=== PATIENT | female | born 1965 | race Asian ===

== ENCOUNTER 2021-05-28 09:10 | Emergency (ER) | payer OTHER ==
[2021-05-28 09:18] VITALS: BP 180/93
--- NOTE | 2021-05-28 09:32 | ED Physician Documentation ---
PD HPI UPPER EXT INJURY - Stated complaint Stated Complaint: LT ARM PX - Chief complaint Chief Complaint: Ext Problem - History obtained from History obtained from: Patient - History of Present Illness Location: Left Type of injury: Other (awoke with shoulder/suprascapular pain radiating down to thumb. History of neck pains intermittently similar. No notable injury nor overuse the past few days.). No: Fall, Twist Where injury occurred: Home Timing - onset: Today Timing - details: Abrupt onset, Still present Worsened by: Moving (left shoulder), Palpating (suprascapular area) Associated symptoms: No: Weakness, Numbness Recently seen: Not recently seen Review of Systems Constitutional: denies: Fever, Chills Skin: denies: Rash, Lesions Neurologic: denies: Focal weakness, Numbness, Headache PD PAST MEDICAL HISTORY - Past Medical History Cardiovascular: None Neuro: None - Present Medications Home Medications: Ambulatory Orders Medication Instructions Recorded Confirmed HYDROcod/ACETAM 5/325 [[place] 5/325] 1 ea PO Q6H PRN #18 tablet 05/28/21 dexAMETHasone [Decadron] 4 mg PO DAILY #5 tablet 05/28/21 tiZANidine [Zanaflex] 4 mg PO Q8H PRN #25 tablet 05/28/21 - Allergies Allergies/Adverse Reactions: Allergies Allergy/AdvReac Type Severity Reaction Status Date / Time acetaminophen Allergy Unknown Verified 05/28/21 09:18 [From Tylenol-Codeine #3] codeine Allergy Unknown Verified 05/28/21 09:18 [From Tylenol-Codeine #3] Sulfa (Sulfonamide AdvReac Rash Verified 05/28/21 09:18 Antibiotics) PD ED PE NORMAL - Vitals Vital signs reviewed: Yes - General General: Alert and oriented X 3, Well developed/nourished, Other (appears uncomfortable due to shoulder/arm pain) - Neck Neck: Supple, no meningeal sign, No bony TTP (and not tender in paracervical muscles. ), No adenopathy - Derm Derm: Normal color, Warm and dry - Extremities Extremities: Other (left suprascapular area with muscle tenderness) - Neuro Neuro: Alert and oriented X 3, No motor deficit, No sensory deficit, Normal speech Results - Vitals Vitals: Vital Signs - 24 hr 05/28/21 09:13 Temperature 36.0 C L Heart Rate 106 H Respiratory 18 Rate Blood Pressure 180/93 H O2 Saturation 98 Oxygen O2 Source Room air PD MEDICAL DECISION MAKING - ED course Complexity details: considered differential (pain with movement of shoulder and not so much the neck. Seems likely shoulder muscle process and not pinched nerve in neck per se. ), d/w patient Departure - Departure Disposition: 01 Home, Self Care Clinical Impression: Left shoulder tendonitis Condition: Stable Record reviewed to determine appropriate education?: Yes Follow-Up: Scott Francisco MD [Provider Admit Priv/Credential] - Prescriptions: dexAMETHasone [Decadron] 4 mg PO DAILY #5 tablet HYDROcod/ACETAM 5/325 [[place] 5/325] 1 ea PO Q6H PRN #18 tablet PRN Reason: Pain tiZANidine [Zanaflex] 4 mg PO Q8H PRN #25 tablet PRN Reason: Spasms Comments: This seems likely to be some inflammation of the tendons and muscles through the upper scapula and shoulder area. Use the sling as needed for comfort to reduce range of motion. Do gentle range of motion a few times a day however so the shoulder does not stiffen. Anti-inflammatories of Decadron steroid daily for 5 more days. Tizanidine if needed for spasms and stiffness. You can add some ibuprofen or naproxen 2-3 times a day or Tylenol every 4-6 hours as needed for pain. Add hydrocodone 1 to 2 tablets every 6 hours if needed for worse pain. My narcotic instructions I am prescribing a short course of narcotic pain medication for you. These are potentially dangerous and addictive medications that should be used carefully. These medications may constipate you. Take an [id number] stool softener such as docusate twice daily with plenty of water while taking these medications. If you go 24 hours without a bowel movement, take [id number] MiraLAX, per package instructions. Do not drink or drive while taking these medications. If you received narcotic or sedating medications while in the emergency department do not drive for 24 hours. Store this medication in a safe, secure place and out of reach of children. It is a violation of federal law to give or sell this medication to another person or to use in a manner other than prescribed. The ED will not refill narcotic prescriptions, including prescriptions lost or stolen. You can dispose of unwanted medications at the [facility]'s office or at several pharmacies such as [facility]. Recheck if not improved well over the next several days and resolved by 3 to 5 days. Follow-up with orthopedics if not improving. Discharge Date/Time: 05/28/21 11:18
[2021-05-28] MEDS ORDERED: KETOROLAC 15 MG/ML VIAL IM STA (10:02)
[2021-05-28] MEDS ORDERED: DEXAMETHASONE 10 MG/ML VIAL PO STA (10:02)
[2021-05-28] MEDS ORDERED: HYDROcod/ACETAM 5/325 MG TABLET PO STA (10:02)
[2021-05-28] MEDS ORDERED: CHERRY SYRUP 10 ML UDC PO ONE (10:02)
[2021-05-28] MEDS ORDERED: methocarbamoL 500 MG TABLET PO STA (10:02)
== END 2021-05-28 11:18 | disposition home or self-care (01) ==
LOC: ED 09:10
DX: M77.8 Other enthesopathies, not elsewhere classified (principal); M25.512 Pain in left shoulder; M79.602 Pain in left arm
CPT/HCPCS: 96372; 99281; 99283; A9270